=== PATIENT | male | born 1990 | race African-American/Black ===

== ENCOUNTER 2021-02-05 09:20 | Emergency (ER) | payer OTHER ==
[~2021-02-05] VITALS: Ht 188 cm; Wt 118.2 kg
[2021-02-05 09:26] VITALS: BP 165/95
[2021-02-05 11:48] LABS: COVID AG,FIA SOURCE NASOPHARYNGEAL
[2021-02-05 12:08] LABS: INFLUENZA TYPE A NEGATIVE FOR TYPE A (NEGATIVE); INFLUENZA TYPE B NEGATIVE FOR TYPE B (NEGATIVE)
== END 2021-02-05 12:38 | disposition home or self-care (01) ==
LOC: EMS 09:23
DX: J02.9 Acute pharyngitis, unspecified (principal); Z20.822 Contact with and (suspected) exposure to COVID-19
CPT/HCPCS: 87426; 87804; 99283; U0003